=== PATIENT | female | born 1960 | race Caucasian/White ===

== ENCOUNTER 2023-01-08 08:17 | Day surgery (SDC) | payer MEDICAID ==
[~2023-01-08] VITALS: Ht 154.9 cm; Wt 94.3 kg
[2023-01-08] MEDS ORDERED: fentaNYL CITRATE/PF 100 MCG/2 ML AMP ONE (09:46)
[2023-01-08] MEDS ORDERED: MIDAZOLAM HCL 5 MG/5 ML VIAL ONE (09:46)
[2023-01-08 09:50] VITALS: O2SAT 98
[2023-01-08 13:01] VITALS: BP_SYST 124; PULSE 81; RESP 20
== END 2023-01-08 11:10 | disposition home or self-care (01) ==
LOC: SDS 08:17 → SMU 08:23 → SDS 11:10
PROVIDERS: ATTEND Internal Medicine
DX: K62.5 Hemorrhage of anus and rectum (principal); D12.2 Benign neoplasm of ascending colon; D12.4 Benign neoplasm of descending colon; C18.7 Malignant neoplasm of sigmoid colon; K64.8 Other hemorrhoids; R19.5 Other fecal abnormalities; I10 Essential (primary) hypertension; Z79.899 Other long term (current) drug therapy
CPT/HCPCS: 45380; 45381; 45385; 88305; 99152; 99153; G0378; J2250; J3010; 45384